=== PATIENT | male | born 1995 | race Caucasian/White ===

== ENCOUNTER 2016-08-06 20:27 | Emergency (ER) | payer BC ==
[2016-08-06 21:03] VITALS: BP 133/75; PULSE 68; RESP 16; TEMP 98.7
--- NOTE | 2016-08-06 21:34 | XR ---
EXAMINATION TYPE: XR foot complete RT DATE OF EXAM: 08/06/2016 COMPARISON: NONE HISTORY: Pain after injury TECHNIQUE: 3 views FINDINGS: Bones and joints and soft tissues are unremarkable. IMPRESSION: No acute process.
--- NOTE | 2016-08-06 21:36 | XR ---
EXAMINATION TYPE: XR ankle complete RT DATE OF EXAM: 08/06/2016 COMPARISON: NONE HISTORY: Pain after injury TECHNIQUE: 3 views FINDINGS: There prominent ankle soft tissue swelling laterally. There is a nondisplaced oblique dista l fibular fracture which enters the mortise. The mortise appears intact. No other fractures. IMPRESSION: DISTAL FIBULAR INTRA-ARTICULAR FRACTURE.
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
== END 2016-08-06 21:54 | disposition home or self-care (01) ==
LOC: EC 20:27
DX: S82.831A Other fracture of upper and lower end of right fibula, initial encounter for closed fracture (principal); V86.59XA Driver of other special all-terrain or other off-road motor vehicle injured in nontraffic accident, initial encounter
CPT/HCPCS: 29505; 99284

== ENCOUNTER 2021-06-04 15:39 | Emergency (ER) | payer BC ==
[2021-06-04 16:11] VITALS: RESP 18; TEMP 98.2
--- NOTE | 2021-06-04 16:59 | XR ---
EXAMINATION TYPE: XR shoulder complete LT DATE OF EXAM: 06/04/2021 COMPARISON: NONE HISTORY: Shoulder pain TECHNIQUE: 3 view FINDINGS: There is slight widening of AC joint space. This measures 7 mm. There is no evidence of a fracture. Glenohumeral joint is intact. IMPRESSION: Possible minimal AC ligament tear. No fracture seen.
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
--- NOTE | 2021-06-04 17:49 | XR ---
EXAMINATION TYPE: XR AC joint BILAT DATE OF EXAM: 06/04/2021 COMPARISON: NONE HISTORY: Pain TECHNIQUE: 4 views FINDINGS: Frontal views were obtained of the AC joints with and without weights. Right AC joint space is 2.5 mm with and without weights. The left AC joint spaces 8.5 mm with and without weights. There is malalignment of the left AC joint with 8 mm inferior displacement of the acromion. IMPRESSION: There is evidence of left-sided AC ligament tear and also coracoclavicular ligament tear. No instability seen with the weight-bearing view.
[2021-06-04 18:42] VITALS: BP 122/72; PULSE 98
== END 2021-06-04 18:43 | disposition home or self-care (01) ==
LOC: EC 15:39
DX: S43.52XA Sprain of left acromioclavicular joint, initial encounter (principal); V86.56XA Driver of dirt bike or motor/cross bike injured in nontraffic accident, initial encounter; Y92.410 Unspecified street and highway as the place of occurrence of the external cause
CPT/HCPCS: 73050; 99284